=== PATIENT | male | born 1985 | race African-American/Black ===

== ENCOUNTER 2020-09-12 04:10 | Emergency (ER) | payer OTHER ==
[2020-09-12 04:18] VITALS: TEMP 98.8; BMI 32.0
[2020-09-12 05:03] LABS: EOS % 0.6 % (0-4.5); HEMATOCRIT 44.5 % (35.4-49); HEMOGLOBIN 15.8 GM/dL (11.7-16.9); LYMPH % 25.2 % (8-40); MCH 34.9 pg (25.7-33.7); MCHC 35.5 g/dl (32.0-35.9); MEAN CELL VOLUME 98.2 fl (80-96); MEAN PLT VOLUME 8.1 fl (7.5-11.1); MONO % 8.7 % (3.8-10.2); NEUT % 64.5 % (42.8-82.8); PLATELET COUNT 183 10^3/uL (134-434); RBC 4.53 M/mm3 (4.00-5.60); RDW 13.1 % (11.9-15.9); WHITE BLOOD COUNT 4.9 K/mm3 (4.0-10.0)
[2020-09-12 05:14] LABS: INR 1.03 (0.83-1.09); PROTHROMBIN TIME (PATIENT) 12.7 SEC (9.7-13.0)
[2020-09-12 05:17] LABS: ACTIVATED PTT 31.9 SECONDS (25.2-36.5)
[2020-09-12 05:26] LABS: CHLORIDE 104 mmol/L (98-107); SODIUM 138 mmol/L (136-145)
[2020-09-12 05:28] LABS: BLOOD UREA NITROGEN 14.5 mg/dL (7-18); CALCIUM 8.5 mg/dL (8.5-10.1)
[2020-09-12 05:29] LABS: ALBUMIN 4.1 g/dl (3.4-5.0); ANION GAP 11 MMOL/L (8-16); CO2 24 mmol/L (21-32); GLUCOSE,RANDOM 87 mg/dL (74-106)
[2020-09-12 05:32] LABS: SGOT/AST 25 U/L (15-37); SGPT/ALT 28 U/L (13-61)
[2020-09-12 05:33] LABS: BILIRUBIN,TOTAL 1.2 mg/dL (0.2-1); TOT PROT 8.2 g/dl (6.4-8.2)
[2020-09-12 05:34] LABS: ALK PHOS 41 U/L (45-117)
[2020-09-12] MEDS ORDERED: NALOXONE HCL 0.4 MG/ML VIAL IVPUSH ONE (05:49)
[2020-09-12] MEDS ORDERED: NALOXONE HCL 0.4 MG/ML VIAL ONE (05:51)
[2020-09-12 05:53] LABS: CREATININE 1.1 mg/dL (0.55-1.3)
[2020-09-12] MEDS ORDERED: SODIUM CHLORIDE 0.9% 1000 ML INFUS.BAG IV ONE (06:30)
[2020-09-12 09:51] LABS: URINE AMPHETAMINES NEGATIVE (NEGATIVE)
[2020-09-12 09:52] LABS: OPIATES, URI NEGATIVE (NEGATIVE); PHENCYCLIDINE,URINE NEGATIVE (NEGATIVE)
[2020-09-12 09:55] VITALS: BP 120/86; PULSE 74
[2020-09-12 10:01] LABS: COCAINE, UR NEGATIVE (NEGATIVE); METHADONE, UR NEGATIVE (NEGATIVE); URINE BARBITURATES NEGATIVE (NEGATIVE); URINE BENZODIAZEPINES NEGATIVE (NEGATIVE)
== END 2020-09-12 09:55 | disposition home or self-care (01) ==
LOC: JER 04:10
PROC: 3E033GC Introduction of Other Therapeutic Substance into Peripheral Vein, Percutaneous Approach (ICD-10-PCS; principal; 2020-09-12)
DX: R07.9 Chest pain, unspecified (principal)
CPT/HCPCS: 36415; 70450-TC; 71045-TC-FY; 80053; 80307; 82962; 84484; 85025; 85379; 85610; 85730; 93005; 93010; 99285-25